=== PATIENT | female | born 1950 | race Caucasian/White ===

== ENCOUNTER → 2019-10-12 | Outpatient (CLI) | payer MEDICARE ==
--- NOTE | 2019-11-15 09:19 | REP ---
LEFT KNEE SERIES: 5-VIEWS HISTORY: No known injury. Pain in the left knee. FINDINGS: There is mild medial and lateral compartment chondrocalcinosis. There is dystrophic calcification along the attachment of the medial collateral ligament. Joint spaces are preserved. There is mild osteoarthritic spurring at the superior and inferior pole of the patella consistent with early osteoarthritis. No joint effusion is seen. No fracture or other acute bony abnormality. IMPRESSION: Mild patellofemoral osteoarthritic spurring. Chondrocalcinosis. Dystrophic calcification at the proximal insertion of the medial collateral ligament. No acute bony abnormality. MTDD
== END ==
LOC: M WUC 09:26
PROVIDERS: ATTEND Nurse Practitioner Family
DX: M25.762 Osteophyte, left knee (principal)